=== PATIENT | male | born 1985 | race Caucasian/White ===

== ENCOUNTER 2016-09-13 14:22 | Outpatient (RCR) | payer MEDICARE, OTHER | END 2016-09-25 | LOC: M OUTALCOH 14:22 | PROVIDERS: ATTEND Psychiatry & Neurology Psychiatry | DX: F10.20 Alcohol dependence, uncomplicated (principal); F17.200 Nicotine dependence, unspecified, uncomplicated ==

== ENCOUNTER 2016-10-11 15:35 | Outpatient (RCR) | payer MEDICARE, OTHER | END 2016-10-23 | LOC: M OUTALCOH 15:35 | PROVIDERS: ATTEND Psychiatry & Neurology Psychiatry | DX: F10.20 Alcohol dependence, uncomplicated (principal); F17.200 Nicotine dependence, unspecified, uncomplicated ==

== ENCOUNTER → 2023-06-04 | Outpatient (REF) | payer OTHER | LOC: M SFHCDERM 14:06 | PROVIDERS: ATTEND Nurse Practitioner Family | DX: L82.0 Inflamed seborrheic keratosis (principal) ==

== ENCOUNTER → 2023-09-06 | Outpatient (REF) | payer OTHER | LOC: M SFHCDERM 17:42 | PROVIDERS: ATTEND Nurse Practitioner Family | DX: D22.5 Melanocytic nevi of trunk (principal) ==

== ENCOUNTER → 2023-09-24 | Outpatient (CLI) | payer OTHER | LOC: M CARPUL 09:19 | PROVIDERS: ATTEND Internal Medicine | DX: R94.31 Abnormal electrocardiogram [ECG] [EKG] (principal) ==

== ENCOUNTER 2025-03-30 10:19 | Emergency (ER) | payer OTHER ==
[~2025-03-30] VITALS: Ht 175.3 cm; Wt 133.5 kg
[2025-03-30 10:23] VITALS: TEMP 97.6; O2SAT 98
[2025-03-30] MEDS ORDERED: CLON0.5T2 PO (10:34)
[2025-03-30] MEDS ORDERED: losartan PO (10:34)
[2025-03-30 11:15] LABS: PLATELET COUNT, AUTOMATED 261 10^3/uL (150-450)
[2025-03-30 11:38] LABS: AMPHETAMINES LEVEL URINE NEGATIVE (NEGATIVE); BARBITURATES URINE NEGATIVE (NEGATIVE); BENZODIAZEPINES URINE NEGATIVE (NEGATIVE); CANNABINOIDS URINE NEGATIVE (NEGATIVE); METHADONE URINE NEGATIVE (NEGATIVE); OPIATES URINE NEGATIVE (NEGATIVE); PHENCYCLIDINE URINE NEGATIVE (NEGATIVE)
[2025-03-30 11:40] LABS: COCAINE METABOLITE URINE POSITIVE (NEGATIVE); ETHYL ALCOHOL (ETHANOL) 0.192 % (0.000-0.010)
[2025-03-30 11:42] LABS: ALT/SGPT 167 U/L (7.0-40); AST/SGOT 84 U/L (<34); CALCIUM LEVEL 9.5 MG/DL (8.5-10.1); CARBON DIOXIDE LEVEL 22 MMOL/L (20-31); CHLORIDE LEVEL 103 MMOL/L (98-107); CREATININE FOR GFR 0.92 MG/DL (0.70-1.30); GLOMERULAR FILTRATION RATE > 90.0 (>60); POTASSIUM SERUM 4.2 MMOL/L (3.5-5.1); SALICYLATE LEVEL < 3.0 MG/DL (<30); SODIUM LEVEL 140 MMOL/L (136-145)
[2025-03-30] MEDS ORDERED: LOSA25TA13 PO (11:44)
[2025-03-30] MEDS ORDERED: HOME MED LIST COMPLETE! XX SCH (11:45)
[2025-03-30 13:52] VITALS: BP 132/88
[2025-03-30] MEDS: LOSARTAN 25 MG TAB PO ONE (13:52)
[2025-03-30 13:53] VITALS: BP 132/88
== END 2025-03-30 18:28 | disposition home or self-care (01) ==
LOC: M ED 10:19
DX: F10.120 Alcohol abuse with intoxication, uncomplicated (principal); F14.120 Cocaine abuse with intoxication, uncomplicated; F17.200 Nicotine dependence, unspecified, uncomplicated